=== PATIENT | male | born 1995 | race Caucasian/White ===

== ENCOUNTER 2022-02-14 23:59 | Emergency (ER) | payer MEDICAID ==
[~2022-02-14] VITALS: Ht 172.7 cm; Wt 91.0 kg
[2022-02-15 01:00] VITALS: BP 128/61
[2022-02-15] MEDS ORDERED: TETANUS, DIPHTHERIA, PERTUSSIS VAC/PF 0.5ML (>10YR OLD) IM ONE (01:00)
== END 2022-02-15 01:44 ==
LOC: ER 23:59
DX: R45.851 Suicidal ideations (principal)
CPT/HCPCS: 90471; 90715; 99284